=== PATIENT | female | born 1945 | race Caucasian/White ===

== ENCOUNTER 2017-11-18 07:02 | Day surgery (SDC) | payer MEDICARE, MEDICAID ==
[~2017-11-18] VITALS: Ht 165.1 cm; Wt 81.2 kg
[~2017-11-18 07:02] MED LIST: AMLODIPINE10 MG PO; AMLODIPINE2.5 MG PO; ASPIRIN EC81 MG PO; CLARITIN10 M2 PO; COZAAR25 MG PO; CRESTOR10 MG PO; FLONASE AL50 MCG/ACT; LOPRESSOR25 MG PO; LOSARTAN POT50 MG PO; LOVASTATIN20 MG PO; NEXIUM20 M1 PO; NEXIUM40 M1 PO; NICOTINE; NITROGLYCER0.4 MG PO; PRILOSEC20 MG/CAP PO; SIMVASTATIN10 MG PO
[2017-11-18 09:21] VITALS: BP 116/62
== END 2017-11-18 09:25 | disposition home or self-care (01) ==
LOC: ENDO 07:02 → ORM 10:00 → ENDO 10:00
PROVIDERS: ATTEND Surgery
PROC: 0DJ08ZZ Inspection of Upper Intestinal Tract, Via Natural or Artificial Opening Endoscopic (ICD-10-PCS; principal; 2017-11-18)
DX: K44.9 Diaphragmatic hernia without obstruction or gangrene (principal); Z80.8 Family history of malignant neoplasm of other organs or systems

== ENCOUNTER → 2017-11-25 | Outpatient (REF) | payer MEDICARE, MEDICAID ==
[2017-11-25 09:22] LABS: CREATININE 0.7 mg/dL (0.5-1.0)
== END | disposition home or self-care (01) ==
LOC: CT 11-23 08:25
PROVIDERS: ATTEND Surgery
DX: Z51.81 Encounter for therapeutic drug level monitoring (principal); K44.9 Diaphragmatic hernia without obstruction or gangrene
CPT/HCPCS: Q9967

== ENCOUNTER 2018-01-20 06:32 | Day surgery (SDC) | payer MEDICARE, MEDICAID ==
[~2018-01-20 06:32] MED LIST changes: +ALLEGRA60 MG PO
[2018-01-20 09:51] VITALS: BP 149/84
== END 2018-01-20 10:00 | disposition home or self-care (01) ==
LOC: ENDO 06:32 → ORM 09:30 → ENDO 09:30
PROVIDERS: ATTEND Surgery
PROC: 3E0G8GC Introduction of Other Therapeutic Substance into Upper GI, Via Natural or Artificial Opening Endoscopic (ICD-10-PCS; principal; 2018-01-20)
DX: K22.8 Other specified diseases of esophagus (principal); Q39.8 Other congenital malformations of esophagus; Z80.0 Family history of malignant neoplasm of digestive organs

== ENCOUNTER 2018-03-06 14:48 | Emergency (ER) | payer MEDICARE, MEDICAID ==
[~2018-03-06] VITALS: Ht 167.6 cm; Wt 80.5 kg
[2018-03-06] MEDS ORDERED: EQ MAGNESIUM CI1 SOL PO (16:16)
[2018-03-06] MEDS ORDERED: MIRALAX3350 N1 PO (16:16)
[2018-03-06 16:26] VITALS: BP 170/96
== END 2018-03-06 16:39 | disposition home or self-care (01) ==
LOC: ED 14:48
DX: K59.00 Constipation, unspecified (principal); K64.9 Unspecified hemorrhoids; K62.89 Other specified diseases of anus and rectum; I10 Essential (primary) hypertension

== ENCOUNTER → 2018-04-22 | Outpatient (REF) | payer MEDICARE, MEDICAID ==
[~2018-04-22] MED LIST changes: +EQ MAGNESIUM CI1 SOL PO; +MIRALAX3350 N1 PO
== END | disposition home or self-care (01) ==
LOC: DI 08:51
PROVIDERS: ATTEND Nurse Practitioner Family
DX: R05 Cough (principal)

== ENCOUNTER 2018-07-07 18:34 | Emergency (ER) | payer MEDICARE, MEDICAID ==
[~2018-07-07] VITALS: Ht 167.6 cm; Wt 70.0 kg
[2018-07-07] MEDS ORDERED: BACTRIM DS1 TAB PO (19:35)
[2018-07-07 19:47] VITALS: BP 142/72
== END 2018-07-07 19:47 | disposition home or self-care (01) ==
LOC: ED 18:34
PROC: 0HQNXZZ Repair Left Foot Skin, External Approach (ICD-10-PCS; principal; 2018-07-07)
DX: S91.312A Laceration without foreign body, left foot, initial encounter (principal); I10 Essential (primary) hypertension; W22.8XXA Striking against or struck by other objects, initial encounter; Y92.009 Unspecified place in unspecified non-institutional (private) residence as the place of occurrence of the external cause

== ENCOUNTER 2018-10-12 22:20 | Emergency (ER) | payer MEDICARE, MEDICAID ==
[~2018-10-12] VITALS: Ht 167.6 cm; Wt 78.6 kg
[~2018-10-12 22:20] MED LIST changes: +BACTRIM DS1 TAB PO
[2018-10-12] MEDS ORDERED: LOSARTAN POTASS25 MG PO (22:54)
[2018-10-12] MEDS ORDERED: LINZESS72 MCG PO (22:55)
[2018-10-12] MEDS ORDERED: NEXIUM20 M1 PO (22:56)
[2018-10-12 23:40] LABS: HEMOGLOBIN 10.6 g/dl (12.0-16.0); IMMATURE GRANULOCYTES 0.4 % (0.0-5.0); MEAN CELL VOLUME 89.9 fL CALC (80.0-100.0); MEAN CORPUSCULAR HGB 28.9 pG CALC (26.0-32.0); MEAN CORPUSCULAR HGB CONC 32.1 g/L CALC (32.0-36.0); NEUT# 5.01 thou/uL (2.00-7.15); RED BLOOD COUNT 3.67 mill/uL (4.20-5.60); RED CELL DISTRI WIDTH 12.6 % (11.5-15.5)
[2018-10-12 23:51] LABS: ALBUMIN 4.2 g/dL (3.2-5.0); ALKALINE PHOSPHATASE 115 u/l (38-126); ANION GAP 11 (6-22 (CALC)); BILIRUBIN, TOTAL 0.4 mg/dL (0.0-1.4); BUN 21 mg/dL (8-23); BUN/CREATININE RATIO 25 (12-20 (CALC)); CARBON DIOXIDE 29 mmol/l (22-30); CHLORIDE 104 mmol/l (95-108); CREATININE 0.8 mg/dL (0.5-1.0); GFR > 60 ML/MIN (>=60 (CALC)); GFR FOR AFR.AMER. > 60 ML/MIN (>=60 (CALC)); POTASSIUM 4.3 mmol/l (3.5-5.1); SGOT/AST 19 u/l (9-36); SODIUM 140 mmol/l (137-146); TOTAL PROTEIN 7.3 g/dL (6.3-8.2)
[2018-10-13] MEDS ORDERED: FIORICET PO (00:44)
[2018-10-13 01:01] VITALS: BP 130/62
== END 2018-10-13 01:00 | disposition home or self-care (01) ==
LOC: ED 22:20
PROVIDERS: Emergency Medicine
DX: I10 Essential (primary) hypertension (principal); R51 Headache

== ENCOUNTER 2018-12-27 06:12 | Emergency (ER) | payer MEDICARE, MEDICAID ==
[~2018-12-27] VITALS: Ht 167.6 cm; Wt 77.2 kg
[~2018-12-27 06:12] MED LIST changes: +FIORICET PO; +LINZESS72 MCG PO; +LOSARTAN POTASS25 MG PO
[2018-12-27] MEDS ORDERED: VALSARTAN40 MG PO (07:02)
[2018-12-27] MEDS ORDERED: B-125000 MC1 PO (07:04)
[2018-12-27] MEDS ORDERED: MULTI VIT PO (07:04)
[2018-12-27] MEDS ORDERED: AMLODIPINE BES2.5 MG PO (07:05)
[2018-12-27 07:32] LABS: HEMATOCRIT 35.3 % (37.0-47.0); HEMOGLOBIN 11.1 g/dl (12.0-16.0); IMMATURE GRANULOCYTES 0.3 % (0.0-5.0); MEAN CELL VOLUME 86.1 fL CALC (80.0-100.0); MEAN CORPUSCULAR HGB 27.1 pG CALC (26.0-32.0); MEAN CORPUSCULAR HGB CONC 31.4 g/L CALC (32.0-36.0); NEUT# 4.22 thou/uL (2.00-7.15); RED BLOOD COUNT 4.1 mill/uL (4.20-5.60); RED CELL DISTRI WIDTH 13.4 % (11.5-15.5)
[2018-12-27 07:52] LABS: ALBUMIN 4.3 g/dL (3.2-5.0); ALKALINE PHOSPHATASE 115 u/l (38-126); ANION GAP 13 (6-22 (CALC)); BILIRUBIN, TOTAL 0.6 mg/dL (0.0-1.4); BUN 15 mg/dL (8-23); BUN/CREATININE RATIO 20 (12-20 (CALC)); CARBON DIOXIDE 26 mmol/l (22-30); CHLORIDE 104 mmol/l (95-108); CREATININE 0.8 mg/dL (0.5-1.0); GFR > 60 ML/MIN (>=60 (CALC)); GFR FOR AFR.AMER. > 60 ML/MIN (>=60 (CALC)); POTASSIUM 4.5 mmol/l (3.5-5.1); SGOT/AST 18 u/l (9-36); SODIUM 138 mmol/l (137-146); TOTAL PROTEIN 7.8 g/dL (6.3-8.2)
[2018-12-27 08:30] LABS: URINE BILIRUBIN - DIPSTICK NEGATIVE (NEGATIVE); URINE BLOOD DIPSTICK TRACE-INTACT (NEGATIVE); URINE COLOR YELLOW; URINE GLUCOSE - DIPSTICK NEGATIVE (NEGATIVE); URINE KETONE NEGATIVE (NEGATIVE); URINE LEUK ESTERASE NEGATIVE (NEGATIVE); URINE NITRITE - DIPSTICK NEGATIVE (Negative); URINE PROTEIN - DIPSTICK NEGATIVE (NEG-TRACE); URINE SPECIFIC GRAVITY 1.015; URINE UROBILINOGEN - DIPSTICK 0.2 E.U./dL (0.2)
[2018-12-27] MEDS ORDERED: FIORICET PO (09:00)
[2018-12-27 09:18] VITALS: BP 151/85
== END 2018-12-27 09:35 | disposition home or self-care (01) ==
LOC: ED 06:12
PROVIDERS: Emergency Medicine
DX: R51 Headache (principal); M79.661 Pain in right lower leg; I10 Essential (primary) hypertension; R01.1 Cardiac murmur, unspecified; Z79.82 Long term (current) use of aspirin; Z86.718 Personal history of other venous thrombosis and embolism

== ENCOUNTER 2019-11-03 08:07 | Observation (INO) | payer MEDICARE, MEDICAID ==
[~2019-11-03] VITALS: Ht 167.6 cm; Wt 79.2 kg
[~2019-11-03 08:07] MED LIST changes: +AMLODIPINE BES2.5 MG PO; +B-125000 MC1 PO; +MULTI VIT PO; +VALSARTAN40 MG PO
--- NOTE | 2019-11-03 08:07 | NUR ---
PT TO ROOM VIA EMS
--- NOTE | 2019-11-03 08:10 | NUR ---
PT CHANGED TO GOWN. EKG DONE. MONITORS APPLIED. PT REPORTS WAKENED WITH 10/10 RIGHT SHOULDER PAIN AND ELEVATED BLOOD PRESSURE. DR THOMAS AT BEDSIDE. DENIES SHORTNESS OF BREATH. NO DIAPHORESIS. PT AO X 3. SKIN WARM PINK AND DRY.
--- NOTE | 2019-11-03 08:24 | NUR ---
PT REPORTS PAIN 10/10 PRIOR TO NTG SL GIVEN. AFTER NTG PAIN 8/10. DR THOMAS AWARE.
[2019-11-03] MEDS ORDERED: CARVEDILOL6.25 MG PO (08:30)
--- NOTE | 2019-11-03 08:40 | NUR ---
THIRD NTG GIVEN SL. PAIN 5/10
[2019-11-03 08:57] LABS: HEMATOCRIT 31.9 % (37.0-47.0); HEMOGLOBIN 9.3 g/dl (12.0-16.0); IMMATURE GRANULOCYTES 0.3 % (0.0-5.0); MEAN CORPUSCULAR HGB 21.8 pG CALC (26.0-32.0); MEAN CORPUSCULAR HGB CONC 29.2 g/dL CAL (32.0-36.0); NEUT# 3.95 thou/uL (2.00-7.15); RED BLOOD COUNT 4.26 mill/uL (4.20-5.60); RED CELL DISTRI WIDTH 16.8 % (11.5-15.5)
[2019-11-03 09:00] LABS: MEAN CELL VOLUME 74.9 fL CALC (80.0-100.0)
[2019-11-03 09:19] LABS: ACT PARTIAL THROMBO TIME 22.5 SECONDS (20.0-32.5); PROTHROMBIN TIME 9.8 SECONDS (9.0-12.5)
[2019-11-03 09:21] LABS: ALBUMIN 4.4 g/dL (3.2-5.0); ALKALINE PHOSPHATASE 112 u/l (38-126); ANION GAP 14 (6-22 (CALC)); BILIRUBIN, TOTAL 0.7 mg/dL (0.0-1.4); BUN 14 mg/dL (8-23); BUN/CREATININE RATIO 20 (12-20 (CALC)); CARBON DIOXIDE 25 mmol/l (22-30); CHLORIDE 102 mmol/l (95-108); CREATININE 0.7 mg/dL (0.5-1.0); GFR > 60 ML/MIN (>=60 (CALC)); GFR FOR AFR.AMER. > 60 ML/MIN (>=60 (CALC)); POTASSIUM 4.6 mmol/l (3.5-5.1); SGOT/AST 24 u/l (9-36); SODIUM 137 mmol/l (137-146); TOTAL PROTEIN 7.5 g/dL (6.3-8.2)
--- NOTE | 2019-11-03 09:33 | NUR ---
PT CONTINUES TO COMPLAIN OF PAIN WITH MOVEMENT. DR THOMAS AWARE. PT MEDICATED FOR PAIN.
--- NOTE | 2019-11-03 09:47 | NUR ---
PAIN 2/10 AFTER MORPHINE
[2019-11-03] MEDS ORDERED: CHLORTHALID25 MG PO (10:12)
--- NOTE | 2019-11-03 10:19 | NUR ---
REPORT GIVEN TO JOVANI TSAI
--- NOTE | 2019-11-03 10:20 | NUR ---
RECEIVED REPORT FROM PACO TSAI.
--- NOTE | 2019-11-03 10:59 | NUR ---
REPORT CALLED TO STEPHON BLAS.
--- NOTE | 2019-11-03 11:45 | NUR ---
TO ROOM 277, BEDSIDE REPORT GIVEN TO STEPHON BLAS.
--- NOTE | 2019-11-03 11:49 | NUR ---
PT ARRIVED TO THE UNIT VIA STRETCHER ACCOMPANIED BY STAFF IV SITE IS FREE FROM REDNESS OR EDEMA. TELE MONITOR IN PLACE. CONTINUE TO OSBERVE AND MONITOR.
[2019-11-03 12:07] VITALS: BP 154/72
--- NOTE | 2019-11-03 12:45 | NUR ---
ASSESSMENT IS COMPLETED:IV SITE IS FREE FROM REDNESS OR EDEMA. HR IS REG,PULSES ARE STRONG X4, ABD IS SOFT WITH ACTIVE BS. BREATH SOUNDS ARE CLEAR, BILATERALLY, TELE MONTIOR IN PLACE. PANKAJ ARPN IN TO VISIT WITH PT. CONTINUE TO OBSERVE AND MONITOR.
--- NOTE | 2019-11-03 13:23 | NUR ---
RECIEVED REPORT FROM ROOPA SZYMANSKI. PT RESTING IN SEMI FOWLERS SPOTIION AT THIS TIME. INTRODUCED SELF TO PT AND DISCUSSED POC. RESRPIATIONS ARE EVEN AND UNLABROED WITH NO SIGNS OF DISTRESS.PT DENEIS ANY PAIN OR DISCOMFORTS AT THIS TIME. ALL SAFTEY PRCAUTIONS ARE IN PLACE WITH CALL LIGHT IN REACH. WILL CONTINUE TO MONITOR
[2019-11-03 14:41] VITALS: BP 115/59
--- NOTE | 2019-11-03 14:45 | NUR ---
VITALS OBTAINED HR 55. D.SORAYA NOTIFIED. ORDERED TO SITLL GIVE NORVASC 5MG.
[2019-11-03 15:22] VITALS: BP 124/61
--- NOTE | 2019-11-03 16:11 | NUR ---
PT RESTING IN SEMI FOWLERS POSITION WATCHING TV. RESPIRATIONS ARE EVEN AND UNLABORED WITH NO SIGNS OF DISTRESS NOTED. PT DENIES OF ANY PAIN OR DISCOMFORTS AT THIS TIME. ALL SAFTEY PRECAUTIONS ARE IN PLACE WITH CALL LIGHT IN REACH. WILL CONTINUE TO MONITOR.
--- NOTE | 2019-11-03 17:57 | NUR ---
PT COMPLAINS OF 5/10 HEADACHE AT THIS TIME.TYLENOL ADFMINISTERED. RESPRIATION SARE EVEN AND UNLABORED WITH NO SIGNS OF DISTRESS. ALL SAFTEY PRECAUTIONS ARE IN PLACE WITH CALL LIGHT IN REACH. WILL CONTINUE TO MONITOR
--- NOTE | 2019-11-03 19:03 | NUR ---
PT COMPLAINS OF 8/10 PAIN IN RIGHT SHOULDER. PT REPORTS TYLENOL DOES NOT HELP. DR HUGHES NOTIFIED. TRAMADOL 50MG ORDERED, AWAITING FOR VERIFICATION OF PHARMACY .
--- NOTE | 2019-11-03 19:28 | NUR ---
REPORT FROM KENNEDY BLAS. PT NOTED RESTING IN BED. NO APPARENT DISTRESS NOTED. PT ALERT AND ORIENTED. PT C/O RIGHT SHOULDER PAIN 11/02. PT MEDICATED AT THIS TIME WITH PRN TRAMADOL. IV SITE APPEARS HEALTHY. MANAGER FASHION IN PLACE. DISCUSSED POC. PT VERBALIZED UNDERSTANDING. ICE WATER AND DENTURE CUP PROVIDED UPON REQUEST. NO OTHER CURRENT WANTS OR NEEDS NOTED. CALL LIGHT WITHIN REACH. WILL CONTINUE TO MONITOR.
[2019-11-03 19:35] VITALS: BP 156/84
[2019-11-03 23:15] VITALS: BP 144/76
--- NOTE | 2019-11-03 23:15 | NUR ---
PT NOTED RESTING IN BED. NO APPARENT DISTRESS NOTED. RESPIRATIONS EVEN AND UNLABORED. VSS. NO CURRENT WANTS OR NEEDS. EVENING ANCHOR IN PLACE. CALL LIGHT WITHIN REACH. WILL CONTINUE TO MONITOR.
--- NOTE | 2019-11-04 03:56 | NUR ---
PT RESTING IN BED WITH EYES CLOSED. NO APPARENT DISTRESS NOTED. RESPIRATIONS EVEN AND UNLABORED. CALL LIGHT WITHIN REACH. WILL CONTINUE TO MONITOR.
[2019-11-04 04:44] VITALS: BP 136/70
[2019-11-04 05:10] LABS: CHOLESTEROL HDL RATIO 4.2 (<4.4 (CALC))
[2019-11-04 07:52] VITALS: BP 179/91
--- NOTE | 2019-11-04 07:52 | NUR ---
RECIEVED [id number] FROM ROOPA VALVERDE. PT RESTING IN SEMI FOWLERS POSTIION UPON ENTERING ROOM. INTRODUCED SELF TO PT AND DISCUSSED POC. PT IS A/OX3. ASESSMENT AND VITALS COMPLETED. BP 179/91, HR 60. MORNING BP MEDICATION TO BE ADMINITERED. RESPIRATIONS AREE EVEN AND UNLABORED WITH NO SIGNS OF DISTRESS. LUNG SOUNDS ARE CLEAR. HEART RHYTHM IS NORMAL WITH TELE IN PLACE. BOWEL SOUNDS ARE ACTIVE IN ALL QUADRANTS, LAST REPORTED BM 11/02/2019. RADIAL AND PEDAL PULSES ARE STRONG WITH NORMAL CAPILLARY REFILL. #20G EMS IN LW FLUSHED, SITE APPEARS HEALTHY AND PATENT. PT COMPLAINS OF NAUSEA, STATING "I THINK ITS BECAUSE I HAVENT HAD MY MEDICINE AND USUALLY I TAKE MY BLOOD PRESSURE MEDICATIONS IN THE MORNING."ZOFRAN TO BE ADMINISTERED WITH MORNING MEDICATIONS. PT COMPLAINS OF HEAD ACHE, PT DENIES ANY PAIN MEDICATIONS. ALL SAFETY PRECAUTIONS ARE IN PLACE WITH CALL LIGHT IN REACH. WILL CONTINUE TO MONITOR.
--- NOTE | 2019-11-04 08:25 | NUR ---
DR GOMEZ AND ADELA, ANRP AT BEDSIDE DISCUSSING POC WITH PT
[2019-11-04 10:45] VITALS: BP 144/75
[2019-11-04] MEDS ORDERED: AMLODIPINE BESYL5 MG PO (10:51)
[2019-11-04] MEDS ORDERED: TRAMADOL HCL50 MG PO (10:52)
--- NOTE | 2019-11-04 10:54 | NUR ---
IV REMOVED WITH CATHATER STILL INTACT. PT TOLERATED WELL. TELE MONITORING REMOVED. ER CALLED TO BE INFORMED OF REMOVAL OF TELE. PT REQUEST TO SHOW AT THIS TIME. ALL SAFETY PRECAUTIONS ARE IN PLACE WITH CALL LIGHT IN REACH. WILL CONTINUE TO MONITOR.
--- NOTE | 2019-11-04 11:58 | NUR ---
Discharge instructions given. Patient verbalizes understanding of same. Discharged in stable condition via Ambulatory to Home with family. All belongings sent with pt. PT EDUCATED ON DISCHARGE INSTRUCTIONS AND NEW MEDIACTIONS NORVASC AND TRAMADOL. PT VERBALIZED UNDERSTANDING. PT AMBULATED WITH STEADY GAIT UPON BEING DISCHARGED. PT REFUSED WHEELCHAIR. PT DISCHARGED WITH ALL DISCHARGE INSTRUCTIONS AND BELONGINGS. WILL COTNINUE TO MONITOR
== END 2019-11-04 12:00 | disposition home or self-care (01) ==
LOC: ED 08:07 → ED-I 09:37 → ED 09:48 → MS2 09:49
PROVIDERS: Nurse Practitioner; Student in an Organized Health Care Education/Training Program; ADMIT Internal Medicine; ATTEND Internal Medicine
DX: R07.89 Other chest pain (principal); I10 Essential (primary) hypertension; I25.10 Atherosclerotic heart disease of native coronary artery without angina pectoris; E78.5 Hyperlipidemia, unspecified; D50.9 Iron deficiency anemia, unspecified; R00.1 Bradycardia, unspecified; F41.9 Anxiety disorder, unspecified; K21.9 Gastro-esophageal reflux disease without esophagitis; R13.10 Dysphagia, unspecified; K44.9 Diaphragmatic hernia without obstruction or gangrene; Z86.718 Personal history of other venous thrombosis and embolism; Z87.891 Personal history of nicotine dependence; Z20.828 Contact with and (suspected) exposure to other viral communicable diseases
CPT/HCPCS: G0378; J1650

== ENCOUNTER 2019-12-22 17:38 | Emergency (ER) | payer MEDICARE, MEDICAID ==
[~2019-12-22] VITALS: Ht 167.6 cm; Wt 77.0 kg
[~2019-12-22 17:38] MED LIST changes: +AMLODIPINE BESYL5 MG PO; +CARVEDILOL6.25 MG PO; +CHLORTHALID25 MG PO; +TRAMADOL HCL50 MG PO
[2019-12-22] MEDS ORDERED: CYCLOBENZAPR5 MG PO (17:55)
[2019-12-22 18:08] VITALS: BP 182/97
== END 2019-12-22 18:38 | disposition home or self-care (01) ==
LOC: ED 17:38
DX: M54.42 Lumbago with sciatica, left side (principal); I10 Essential (primary) hypertension; F41.9 Anxiety disorder, unspecified; Z86.718 Personal history of other venous thrombosis and embolism

== ENCOUNTER 2021-02-18 22:18 | Emergency (ER) | payer MEDICARE ==
[~2021-02-18] VITALS: Ht 167.6 cm; Wt 78.6 kg
[~2021-02-18 22:18] MED LIST changes: +CYCLOBENZAPR5 MG PO
[2021-02-19 01:18] LABS: HEMATOCRIT 40.8 % (37.0-47.0); HEMOGLOBIN 13.2 g/dl (12.0-16.0); IMMATURE GRANULOCYTES 0.1 % (0.0-5.0); MEAN CORPUSCULAR HGB 31.1 pG CALC (26.0-32.0); MEAN CORPUSCULAR HGB CONC 32.4 g/dL CAL (32.0-36.0); NEUT# 5.89 thou/uL (2.00-7.15); RED BLOOD COUNT 4.25 mill/uL (4.20-5.60); RED CELL DISTRI WIDTH 12.3 % (11.5-15.5)
[2021-02-19 01:44] LABS: ALBUMIN 4.3 g/dL (3.2-5.0); ALKALINE PHOSPHATASE 110 u/l (38-126); ANION GAP 12 (6-22 (CALC)); BILIRUBIN, TOTAL 0.7 mg/dL (0.0-1.4); BUN 15 mg/dL (8-23); BUN/CREATININE RATIO 19 (12-20 (CALC)); CARBON DIOXIDE 32 mmol/l (22-30); CHLORIDE 99 mmol/l (95-108); CREATININE 0.8 mg/dL (0.5-1.0); GFR > 60 ML/MIN (>=60 (CALC)); GFR FOR AFR.AMER. > 60 ML/MIN (>=60 (CALC)); LIPASE 138 u/l (23-300); POTASSIUM 3.4 mmol/l (3.5-5.1); SGOT/AST 23 u/l (9-36); SODIUM 140 mmol/l (137-146)
[2021-02-19 04:45] VITALS: BP 167/73
== END 2021-02-19 04:50 | disposition home or self-care (01) ==
LOC: ED 22:18
PROVIDERS: Emergency Medicine
DX: K59.00 Constipation, unspecified (principal); I10 Essential (primary) hypertension; E78.00 Pure hypercholesterolemia, unspecified; F41.9 Anxiety disorder, unspecified; Z86.718 Personal history of other venous thrombosis and embolism
CPT/HCPCS: Q9967

== ENCOUNTER 2021-05-14 06:58 | Day surgery (SDC) | payer MEDICARE, MEDICAID ==
[~2021-05-14 06:58] MED LIST changes: +D31000 UNIT PO; +FISH OIL1000 M2 PO; +IS-ZC 50 50 MG1 TAB PO; +MAGNEBIND300 MG PO; +RESTASIS0.05 % OU
[2021-05-14 08:53] VITALS: BP 140/77
== END 2021-05-14 09:08 | disposition home or self-care (01) ==
LOC: ORM 06:58
PROVIDERS: ATTEND Surgery
PROC: 0DBL8ZX Excision of Transverse Colon, Via Natural or Artificial Opening Endoscopic, Diagnostic (ICD-10-PCS; principal; 2021-05-14)
DX: Z12.11 Encounter for screening for malignant neoplasm of colon (principal); D12.3 Benign neoplasm of transverse colon; K57.30 Diverticulosis of large intestine without perforation or abscess without bleeding; K64.8 Other hemorrhoids; Z86.010 Personal history of colon polyps; Z80.0 Family history of malignant neoplasm of digestive organs

== ENCOUNTER 2021-06-16 22:21 | Emergency (ER) | payer MEDICARE, MEDICAID ==
[~2021-06-16] VITALS: Ht 165.1 cm; Wt 75.0 kg
[2021-06-16 22:59] VITALS: BP 166/78
[2021-06-16 23:01] VITALS: BP 151/81
[2021-06-17] MEDS ORDERED: VOLTAREN75 MG PO (00:32)
[2021-06-17 00:41] VITALS: BP 151/81
== END 2021-06-17 00:47 | disposition home or self-care (01) ==
LOC: ED 22:21
DX: M79.604 Pain in right leg (principal); I10 Essential (primary) hypertension; F41.9 Anxiety disorder, unspecified; Z86.718 Personal history of other venous thrombosis and embolism

== ENCOUNTER 2021-07-18 04:17 | Emergency (ER) | payer MEDICARE, MEDICAID ==
[~2021-07-18] VITALS: Ht 165.1 cm; Wt 77.0 kg
[2021-07-18] VITALS (11 sets, daily range): BP systolic 119–160; BP diastolic 60–86
[~2021-07-18 04:17] MED LIST changes: +VOLTAREN75 MG PO
[2021-07-18] MEDS ORDERED: BENICAR20 MG PO (04:44)
[2021-07-18 05:17] LABS: HEMATOCRIT 39.6 % (37.0-47.0); HEMOGLOBIN 13.2 g/dl (12.0-16.0); IMMATURE GRANULOCYTES 0.1 % (0.0-5.0); MEAN CELL VOLUME 93.8 fL CALC (80.0-100.0); MEAN CORPUSCULAR HGB 31.3 pG CALC (26.0-32.0); MEAN CORPUSCULAR HGB CONC 33.3 g/dL CAL (32.0-36.0); NEUT# 11.53 thou/uL (2.00-7.15); RED BLOOD COUNT 4.22 mill/uL (4.20-5.60); RED CELL DISTRI WIDTH 12.6 % (11.5-15.5)
[2021-07-18 05:27] LABS: ALKALINE PHOSPHATASE 89 u/l (38-126); ANION GAP 13 (6-22 (CALC)); BUN 23 mg/dL (8-23); BUN/CREATININE RATIO 26 (12-20 (CALC)); CARBON DIOXIDE 28 mmol/l (22-30); CHLORIDE 102 mmol/l (95-108); CREATININE 0.9 mg/dL (0.5-1.0); GFR > 60 ML/MIN (>=60 (CALC)); GFR FOR AFR.AMER. > 60 ML/MIN (>=60 (CALC)); POTASSIUM 3.4 mmol/l (3.5-5.1); SGOT/AST 22 u/l (9-36); SODIUM 140 mmol/l (137-146); TOTAL PROTEIN 7.3 g/dL (6.3-8.2)
[2021-07-18 05:29] LABS: BILIRUBIN, TOTAL 0.4 mg/dL (0.0-1.4)
[2021-07-18 05:38] LABS: MYOGLOBIN 39 ng/mL (0 - 62)
[2021-07-18 05:58] LABS: URINE BILIRUBIN - DIPSTICK NEGATIVE (NEGATIVE); URINE BLOOD DIPSTICK SMALL (NEGATIVE); URINE COLOR YELLOW; URINE GLUCOSE - DIPSTICK NEGATIVE (NEGATIVE); URINE KETONE NEGATIVE (NEGATIVE); URINE PH 5.5 (4.5-8.0); URINE PROTEIN - DIPSTICK NEGATIVE (NEG-TRACE); URINE UROBILINOGEN - DIPSTICK 0.2 E.U./dL (0.2)
[2021-07-18 06:07] LABS: URINE NITRITE - DIPSTICK NEGATIVE (Negative)
[2021-07-18 06:08] LABS: URINE BACTERIA FEW hpf; URINE EPITHELIAL CELLS FEW EPI/hpf (0-FEW); URINE LEUK ESTERASE NEGATIVE (NEGATIVE)
[2021-07-18] MEDS ORDERED: ONDANSETRON4 MG PO (06:31)
[2021-07-18] MEDS ORDERED: MECLIZINE25 MG PO (06:31)
[2021-07-18] MEDS ORDERED: CIPROFLOXACN500 MG PO (06:31)
== END 2021-07-18 07:46 | disposition home or self-care (01) ==
LOC: ED 04:17
PROVIDERS: Emergency Medicine
DX: R53.1 Weakness (principal); R42 Dizziness and giddiness; N39.0 Urinary tract infection, site not specified; I10 Essential (primary) hypertension; E78.00 Pure hypercholesterolemia, unspecified; F41.9 Anxiety disorder, unspecified; Z86.718 Personal history of other venous thrombosis and embolism; Z20.822 Contact with and (suspected) exposure to COVID-19
CPT/HCPCS: J1956

== ENCOUNTER 2021-09-20 08:00 | Emergency (ER) | payer MEDICARE, MEDICAID ==
[~2021-09-20] VITALS: Ht 165.1 cm; Wt 77.0 kg
[~2021-09-20 08:00] MED LIST changes: +BENICAR20 MG PO; +CIPROFLOXACN500 MG PO; +MECLIZINE25 MG PO; +ONDANSETRON4 MG PO
[2021-09-20 08:06] VITALS: BP 190/84
[2021-09-20 08:29] LABS: URINE BILIRUBIN - DIPSTICK NEGATIVE (NEGATIVE); URINE BLOOD DIPSTICK LARGE (NEGATIVE); URINE COLOR YELLOW; URINE GLUCOSE - DIPSTICK NEGATIVE (NEGATIVE); URINE KETONE NEGATIVE (NEGATIVE); URINE PROTEIN - DIPSTICK 100 mg/dL (NEG-TRACE); URINE SPECIFIC GRAVITY 1.025; URINE UROBILINOGEN - DIPSTICK 0.2 E.U./dL (0.2)
[2021-09-20 08:30] LABS: HEMATOCRIT 42.1 % (37.0-47.0); HEMOGLOBIN 13.6 g/dl (12.0-16.0); IMMATURE GRANULOCYTES 0.2 % (0.0-5.0); MEAN CELL VOLUME 97.5 fL CALC (80.0-100.0); MEAN CORPUSCULAR HGB 31.5 pG CALC (26.0-32.0); MEAN CORPUSCULAR HGB CONC 32.3 g/dL CAL (32.0-36.0); NEUT# 11.96 thou/uL (2.00-7.15); RED BLOOD COUNT 4.32 mill/uL (4.20-5.60); RED CELL DISTRI WIDTH 12.7 % (11.5-15.5)
[2021-09-20 08:31] LABS: URINE LEUK ESTERASE SMALL (NEGATIVE); URINE NITRITE - DIPSTICK POSITIVE (Negative)
[2021-09-20 08:32] LABS: URINE RBC >100 RBC/hpf (0-5); URINE WBC >100 WBC/hpf (0-5)
[2021-09-20 08:33] LABS: URINE BACTERIA FEW hpf
[2021-09-20 08:46] LABS: ALBUMIN 4.4 g/dL (3.2-5.0); ALKALINE PHOSPHATASE 100 u/l (38-126); ANION GAP 12 (6-22 (CALC)); BILIRUBIN, TOTAL 0.9 mg/dL (0.0-1.4); BUN 16 mg/dL (8-23); BUN/CREATININE RATIO 18 (12-20 (CALC)); CARBON DIOXIDE 25 mmol/l (22-30); CHLORIDE 105 mmol/l (95-108); CREATININE 0.8 mg/dL (0.5-1.0); GFR FOR AFR.AMER. > 60 ML/MIN (>=60 (CALC)); GFR OTHER RACES > 60 ML/MIN (>=60 (CALC)); LIPASE 88 u/l (23-300); POTASSIUM 3.9 mmol/l (3.5-5.1); SGOT/AST 23 u/l (9-36); SODIUM 138 mmol/l (137-146); TOTAL PROTEIN 7.9 g/dL (6.3-8.2)
[2021-09-20] MEDS ORDERED: CEFDINIR300 MG PO (10:03)
[2021-09-20 10:24] VITALS: BP 148/64
== END 2021-09-20 10:29 | disposition home or self-care (01) ==
LOC: ED 08:00
PROVIDERS: Family Medicine
DX: N39.0 Urinary tract infection, site not specified (principal); B96.20 Unspecified Escherichia coli [E. coli] as the cause of diseases classified elsewhere; E27.9 Disorder of adrenal gland, unspecified; I10 Essential (primary) hypertension; F41.9 Anxiety disorder, unspecified; E78.00 Pure hypercholesterolemia, unspecified; Z86.718 Personal history of other venous thrombosis and embolism

== ENCOUNTER 2022-03-29 11:49 | Emergency (ER) | payer MEDICARE, MEDICAID ==
[2022-03-29] VITALS (9 sets, daily range): BP systolic 135–154; BP diastolic 64–79
[~2022-03-29] VITALS: Ht 165.1 cm; Wt 72.6 kg
[~2022-03-29 11:49] MED LIST changes: +CEFDINIR300 MG PO
[2022-03-29 12:43] LABS: BASO% 0.3 % (0-3); EOS% 2.9 % (0-8); HEMATOCRIT 40.8 % (37.0-47.0); HEMOGLOBIN 13.3 g/dl (12.0-16.0); IMMATURE GRANULOCYTES 0.1 % (0.0-5.0); LYMPH% 21.1 % (15-41); MEAN CELL VOLUME 96.5 fL CALC (80.0-100.0); MEAN CORPUSCULAR HGB 31.4 pG CALC (26.0-32.0); MEAN CORPUSCULAR HGB CONC 32.6 g/dL CAL (32.0-36.0); MONO% 5.7 % (2-13); NEUT# 6.7 thou/uL (2.00-7.15); NEUT% 69.9 % (42-76); RED BLOOD COUNT 4.23 mill/uL (4.20-5.60); RED CELL DISTRI WIDTH 12.1 % (11.5-15.5)
[2022-03-29 12:51] LABS: URINE BILIRUBIN - DIPSTICK NEGATIVE (NEGATIVE); URINE BLOOD DIPSTICK TRACE-INTACT (NEGATIVE); URINE COLOR YELLOW; URINE GLUCOSE - DIPSTICK NEGATIVE (NEGATIVE); URINE KETONE NEGATIVE (NEGATIVE); URINE LEUK ESTERASE NEGATIVE (NEGATIVE); URINE PH 5.5 (4.5-8.0); URINE PROTEIN - DIPSTICK NEGATIVE (NEG-TRACE); URINE UROBILINOGEN - DIPSTICK 0.2 E.U./dL (0.2)
[2022-03-29 12:56] LABS: ALBUMIN 4.4 g/dL (3.2-5.0); ALKALINE PHOSPHATASE 101 u/l (38-126); ANION GAP 11 (6-22 (CALC)); BILIRUBIN, TOTAL 0.6 mg/dL (0.02-1.3); BUN 22 mg/dL (8-23); BUN/CREATININE RATIO 25 (12-20 (CALC)); CARBON DIOXIDE 28 mmol/l (22-30); CHLORIDE 104 mmol/l (95-108); CREATININE 0.9 mg/dL (0.5-1.0); GFR FOR AFR.AMER. > 60 ML/MIN (>=60 (CALC)); GFR OTHER RACES > 60 ML/MIN (>=60 (CALC)); POTASSIUM 4.2 mmol/l (3.5-5.1); SGOT/AST 27 u/l (9-36); SODIUM 139 mmol/l (137-146); TOTAL PROTEIN 7.9 g/dL (6.3-8.2)
[2022-03-29 12:59] LABS: URINE NITRITE - DIPSTICK NEGATIVE (Negative)
[2022-03-29] MEDS ORDERED: CARVEDILOL3.125 MG PO (13:13)
[2022-03-29] MEDS ORDERED: LISINOPRIL10 MG PO (13:14)
[2022-03-29] MEDS ORDERED: NITROFURANTN100 M2 PO (13:17)
[2022-03-29] MEDS ORDERED: MECLIZINE 2525 MG PO (14:30)
== END 2022-03-29 14:49 | disposition home or self-care (01) ==
LOC: ED 11:49
PROVIDERS: Family Medicine
DX: H81.10 Benign paroxysmal vertigo, unspecified ear (principal); R00.1 Bradycardia, unspecified; I10 Essential (primary) hypertension; E78.00 Pure hypercholesterolemia, unspecified; F41.9 Anxiety disorder, unspecified; Z86.718 Personal history of other venous thrombosis and embolism; Z20.822 Contact with and (suspected) exposure to COVID-19